=== PATIENT | female | born 1955 | race Caucasian/White ===

== ENCOUNTER 2022-04-08 05:35 | Day surgery (SDC) | payer MEDICAID ==
[~2022-04-08] VITALS: Ht 167.6 cm; Wt 81.2 kg
[2022-04-08] MEDS ORDERED: MEPERIDINE HCL/PF 25 MG/ML DISP.SYRIN ONE (06:54)
[2022-04-08] MEDS ORDERED: MIDAZOLAM HCL 5 MG/5 ML VIAL ONE (07:20)
[2022-04-08] MEDS ORDERED: fentaNYL CITRATE/PF 100 MCG/2 ML AMP ONE (07:20)
[2022-04-08] MEDS ORDERED: SIMETHICONE 40 MG/0.6 ML ML ONE (07:22)
[2022-04-08 10:51] VITALS: BP_SYST 111
== END 2022-04-08 09:16 | disposition home or self-care (01) ==
LOC: SDS 05:35 → SMU 05:35 → SDS 09:16
PROVIDERS: ATTEND Internal Medicine Gastroenterology
DX: Z12.11 Encounter for screening for malignant neoplasm of colon (principal); K63.5 Polyp of colon; K57.30 Diverticulosis of large intestine without perforation or abscess without bleeding; K64.9 Unspecified hemorrhoids; Z20.822 Contact with and (suspected) exposure to COVID-19; Z79.899 Other long term (current) drug therapy
CPT/HCPCS: 45382; 45385; 87426; 36415; 88305; 99152; 99153; G0378; J2250; J3010; J2175